=== PATIENT | female | born 2000 | race Caucasian/White ===

== ENCOUNTER 2023-11-09 12:29 | Outpatient (AMB) | payer BC, SELFPAY ==
--- NOTE | 2023-11-09 12:39 | AM.OFFWIN_ITS ---
Intake Vital Signs 11/09/23 12:41 Weight 138 lb BP 106/60 Blood Pressure Location Lt brachial Position Sitting Pulse 74 Pulse Source Pulse Oximeter Pulse Oximetry (%) 99 Oxygen Delivery Method Room Air Intake Visit Reasons: [employer] Rash around mouth Intake Note: Patient here for rash around the mouth that presented itself a few weeks ago. Patient Tobacco Use Status: Never used Tobacco Allergies No Known Allergies Allergy (Verified 11/10/23 06:06) Medication List - Last Reconciled 11/10/23 by Marty Kong MD metronidazole 1% (Metrogel) 1 appl topical DAILY norgestimate-ethinyl estradiol 0.18/0.215/0.25 mg-35 mcg (28) 1 tab PO DAILY sertraline 50 mg PO DAILY Do you need a note to return to daycare/school/sports/work: No HPI [employer] Rash around mouth HPI Details 23 yr old female presents to the office for a sick visit. For the past three weeks, she has a rash on the face. Mostly around the mouth. She also has acne in the forehead, which was present prior to the current rash. [facility] Social History Patient Tobacco Use Status: Never used Tobacco Physical Exam Vital Signs: Last Vital Signs Pulse 74 11/09/23 12:41 BP 106/60 11/09/23 12:41 Pulse Ox 99 11/09/23 12:41 Oxygen Delivery Method Room Air 11/09/23 12:41 Skin Other: Face: erythematous area periorally, macular rash along the nasolabial folds. No scaling. Assessment & Plan Assessment & Plan (1) Rosacea: Code(s): L71.9 - Rosacea, unspecified Plan: Metrogel added to the regimen. Pt was instructed to use it once a day. If sx do not improve, to follow up here. Medications: New metronidazole 1% (Metrogel) 1 appl topical DAILY 60 grams 0RF Coding Level of Care Code Est Pt Level 3 (13447) Diagnoses Rosacea L71.9
[2023-11-09 12:41] VITALS: BP 106/60; PULSE 74; O2SAT 99
== END 2023-11-09 15:19 | disposition home or self-care (01) ==
PROVIDERS: Visit Provider Internal Medicine
DX: L71.9 Rosacea, unspecified (principal)
CPT/HCPCS: 99213

== ENCOUNTER 2023-12-23 11:59 | Outpatient (AMB) | payer BC, SELFPAY ==
--- NOTE | 2023-12-23 11:59 | AM.OFFWIN_ITS ---
Intake Vital Signs 12/23/23 12:01 Height 5 ft 6 in Weight 143 lb BMI 23.1 BP 110/80 Blood Pressure Location Lt brachial Position Sitting Pulse 82 Pulse Source Pulse Oximeter Temp 98.7 F Temp Source Temporal Artery Scan Pulse Oximetry (%) 98 Oxygen Delivery Method Room Air Intake Visit Reasons: EP sore throat Intake Note: pt is here today for sore throat started thursday Patient Tobacco Use Status: Never used Tobacco Allergies No Known Allergies Allergy (Verified 12/23/23 12:28) Medication List - Last Reconciled 12/23/23 by Marty Kong MD metronidazole 1% (Metrogel) 1 appl topical DAILY norgestimate-ethinyl estradiol 0.18/0.215/0.25 mg-35 mcg (28) 1 tab PO DAILY sertraline 50 mg PO DAILY Do you need a note to return to daycare/school/sports/work: No HPI EP sore throat HPI Details Patient presents for a sick visit. Reporting symptoms of sinus congestion, sore throat and difficulty swallowing. . No family member is sick. No recent travel. Patient reports symptoms of malaise and fatigue. PFSH Social History Patient Tobacco Use Status: Never used Tobacco Physical Exam Vital Signs: Last Vital Signs Temp 98.7 F 12/23/23 12:01 Pulse 82 12/23/23 12:01 BP 110/80 12/23/23 12:01 Pulse Ox 98 12/23/23 12:01 Oxygen Delivery Method Room Air 12/23/23 12:01 BMI result Body Mass Index 23.1 Const General: cooperative and healthy appearing Nutritional Appearance: well nourished Orientation/consciousness: patient oriented x3 Limitations: no limitations HEENT Head: Yes normal to inspection Eyes General: appearance normal, both eyes and all related structures Neck Neck: Yes normal visual inspection Chest Chest palpation & inspection: normal palpation of entire chest wall Resp Effort & Inspection: normal respiratory effort Neuro General: patient oriented x3 Results AMB Rapid Strep AMB Rapid Strep Negative Last Edit by Endy Singh CMA on 12/23/23 12 :15 Assessment & Plan Assessment & Plan (1) Upper respiratory tract infection: Code(s): J06.9 - Acute upper respiratory infection, unspecified Plan: Increase fluid intake. Tylenol for aches and pains. If symptoms worsen, follow-up here for a recheck. Strep test was negative. No antibiotics needed. Orders: Orders AMB Rapid Strep Screen Today Z13.9 - Encounter for screening, unspecified Coding Level of Care Code Est Pt Level 3 (97799) Diagnoses Upper respiratory tract infection J06.9
[2023-12-23 12:01] VITALS: BP 110/80; PULSE 82; TEMP 37.1; O2SAT 98; BMI 23.1
== END 2023-12-23 12:46 | disposition home or self-care (01) ==
PROVIDERS: Visit Provider Internal Medicine
DX: J06.9 Acute upper respiratory infection, unspecified (principal); J02.9 Acute pharyngitis, unspecified
CPT/HCPCS: 87880; 99213